=== PATIENT | male | born 1935 | race Caucasian/White ===

== ENCOUNTER 2016-07-04 12:07 | Inpatient (IN) | payer MEDICARE, MEDICAID ==
--- NOTE | 2016-07-04 12:33 | ED Physician Chart ---
Chief Complaint/HPI - Patient Information Date Seen:: 07/04/16 Time Seen:: 12:25 Chief Complaint:: increased agitation History of Present Illness:: This 81-year-old male was demonstrating increased agitation at his SNF. He apparently struck a door with his right hand. He cannot remember when the door striking incident occurred. Allergies:: Allergies Allergy/AdvReac Type Severity Reaction Status Date / Time No Known Allergies Allergy Verified 07/04/16 12:20 Historian:: Patient, EMS Review:: Nurse's Note Reviewed Review of Systems - Review of Systems General/Constitutional: No fever, No chills Skin: No skin lesions Head: No headache Eyes: No loss of vision ENT: No earache Neck: No neck pain Cardio Vascular: No chest pain, No palpitations Pulmonary: No SOB GI: Nausea, No vomiting G/U: No dysuria, No frequency Musculoskeletal: No bone or joint pain Endocrine: No polyuria, No polydipsia Psychiatric: Prior psych history Hematopoietic: No bruising Allergic/Immuno: No urticaria Neurological: Syncope Past Medical History - Past Medical History Past Medical History: HTN, DM, Dyslipidemia, Seizures, Dementia Family History: None, Other (dysphagia, chronic kidney disease, localized edema , cardiomegaly gastroesophageal esophageal reflux disease, sinusitis seizures, nontraumatic subdural hemorrhage, dementia gastrointestinal hemorrhage, Alzheimer's disease, esophagitis, duodenal ulcer, anemia of chronic renal disease, schizophrenia, major depression unspecified mood disorder atrial fibrillation, obesity, generalized arthritis, psychosis, benign prostatic hypertrophy) Social History: Non Smoker, No Alcohol Surgical History: other (skin graft) Psychiatricy History: Depression, Schizophrenia, Dementia Medication: Reviewed Family Medical History - Family Member Mother History Unknown: Yes Ethnicity: Unknown Living Status: Hx Family Cancer: No Hx Family Coronary Artery Disease: No Hx Family Congestive Heart Failure: No Hx Family Hypertension: No Hx Family Stroke: No Hx Family Diabetes: No Hx Family Seizures: No Hx Family Dementia: No Hx Family AIDS: No Hx Family HIV: No Hx Family COPD: No Hx Family Hepatitis: No Hx Family Psychiatric Problems: No Hx Family Tuberculosis: No Physical Exam - Physical Examination General/Constitutional: Well-developed, well-nourished, Alert Other Gen/Cons comments:: alert and oriented to the correct year only. Knows is the beginning of the month but does not know what month or what date. Head: Atraumatic Eyes: Lids, conjuctiva normal Other Skin comments:: swelling and slight bruising right hand ENMT: External ears, nose nl Other ENMT comments:: Edentulous Neck: No nuchal rigidity Respiratory: Nl effort/Exclusion, Clear to Auscultation Cardio Vascular: RRR GI: No tenderness/rebounding/guarding, No organomegaly, No hernia : No CVA tenderness Other Extremities comments:: See above under skin otherwise normal Neuro/Psych: No focal deficits Misc: Normal back Labs/Radiology/EKG Results - Lab Results Comments:: Laboratory Results - last 24 hr 07/04/16 07/04/16 07/04/16 12:50 12:50 12:50 WBC 9.4 D RBC 4.15 Hgb 11.4 L Hct 34.0 L MCV 82.0 MCH 27.5 MCHC Differential 33.6 RDW 17.2 Plt Count 231 MPV 8.7 Neutrophils % 69.9 Lymphocytes % 17.2 L Monocytes % 10.4 H Eosinophils % 1.9 Basophils % 0.6 Sodium 137 Potassium 3.6 Chloride 103 Carbon Dioxide 29.8 Anion Gap 7.8 BUN 28 H Creatinine 1.2 Est GFR ( Amer) TNP Est GFR (Non-Af Amer) TNP BUN/Creatinine Ratio 23.3 Glucose 104 Calcium 9.1 Total Bilirubin 0.5 AST 16 ALT 11 Alkaline Phosphatase 104 Total Protein 6.7 Albumin 3.4 L Globulin 3.3 Albumin/Globulin Ratio 1.0 TSH 2.24 - EKG Interpretations Rhythm: atrial fibrillation [place]: LAD Rate: 58 Comments:: has history of atrial fibrillation ED Septic Shock - . Is Septic Shock (SBP<90, OR Lactate>4 mmol\L) present?: No Reassessment (Disposition) - Reassessment Reassessment Condition:: Unchanged - Diagnosis Diagnosis:: dementia with agitation - Patient Disposition Admitted to:: [facility] Admitting Medical Physician:: Clarence Sinclair Admitting Psych Physician:: Vida Peterson Condition at Disposition:: Stable, Unchanged
[2016-07-04 13:04] LABS: % BASOPHILS 0.6 % (0.0-2.0); % EOSINOPHILS 1.9 % (0.0-5.0); % LYMPHOCYTES 17.2 % (20.0-50.0); % MONOCYTES 10.4 % (2.0-10.0); % NEUTROPHILS 69.9 % (40.0-80.0); HEMOGLOBIN 11.4 gm/dL (12.6-17.4); MEAN CORPUSCULAR HEMOGLOBIN 27.5 pg (27.0-31.0); MEAN CORPUSCULAR HGB CONC 33.6 pg (28.0-36.0); MEAN PLATELET VOLUME 8.7 fl; NEUTROPHILE ABSOLUTE 6.5 Th/cmm (1.8-8.0); PLATELET COUNT 231 Th/cmm (150-400); RED BLOOD COUNT 4.15 Mil/cmm (3.80-5.80); RED CELL DISTRIBUTION WIDTH 17.2 % (11.5-20.0)
[2016-07-04 13:08] LABS: WHITE BLOOD COUNT 9.4 Th/cmm (4.8-10.8)
[2016-07-04 13:20] LABS: ALKALINE PHOSPHATASE 104 U/L (34-104); ANION GAP 7.8 (7.0-16.0); BILIRUBIN,TOTAL 0.5 mg/dL (0.3-1.0); BUN - UREA NITROGEN 28 mg/dL (7-25); BUN/CREATININE RATIO 23.3; CALCIUM SERUM 9.1 mg/dL (8.6-10.3); CARBON DIOXIDE 29.8 mEq/L (21.0-31.0); CHLORIDE 103 mEq/L (98-107); CREATININE - SERUM 1.2 mg/dL (0.7-1.3); GLUCOSE 104 mg/dL (70-105); POTASSIUM SERUM 3.6 mEq/L (3.5-5.1); SGOT 16 U/L (13-39); SGPT/ALT 11 U/L (7-52); SODIUM SERUM 137 mEq/L (136-145)
[2016-07-04 20:13] VITALS: BP 149/91
[2016-07-04] MEDS ORDERED: Magnesium Hydroxide (MOM) 30 mL UDC PO PRN (21:05)
[2016-07-04] MEDS ORDERED: Maalox 30 mL Cup PO PRN (21:05)
[2016-07-05] MEDS: Multivitamin Tab PO SCH (08:22)
[2016-07-05] MEDS ORDERED: Multivitamin w/ Minerals Tab PO SCH (09:00)
--- NOTE | 2016-07-05 09:57 | History & Physical ---
PATIENT IDENTIFICATION: A 81-year-old male. CHIEF COMPLAINT: "How much money you have?" HISTORY OF PRESENT ILLNESS: A 81-year-old resident of [facility] has been followed by myself and Dr. Peterson, brought in to the Emergency Room on 07/04/2016 by paramedics for evaluation of increasing agitation. The patient was evaluated and subsequently admitted to the hospital for further treatment. The patient has a significant amount of dementia and does not provide any meaningful history. History has been obtained from Emergency Room M.D. as well as talking to staff at [facility]. PAST MEDICAL HISTORY: Remarkable for: 1. Hypertension. 2. Chronic kidney disease. 3. Asthma. 4. DJD. 5. Dementia. 6. CHF. 7. History of iron-deficiency anemia. 8. History of psychotic disorder. MEDICATIONS AT TIME OF TRANSFER: The patient is taking multiple medications, which include Tylenol, ascorbic acid, Colace, Lasix, hydralazine, Xopenex inhalation therapy, Keppra, lisinopril, milk of magnesia, melatonin, Namenda, multivitamin, amlodipine, Cogentin, Seroquel, Effexor XR, Risperdal. ALLERGIES: The patient is not allergic to medications. SOCIAL HISTORY: The patient lives in a halfway. There is no history of documented smoking cigarette, drinking alcohol or using street drug. FAMILY MEDICAL HISTORY: Unavailable. REVIEW OF SYSTEMS: Unable to obtain meaningful history from the patient. PHYSICAL EXAMINATION: GENERAL: The patient is alert, awake, lying in the bed without any acute distress. VITAL SIGNS: Temperature 98.6, pulse is 74, respiratory rate is 18, blood pressure is 130/70. SKIN: Warm to touch. HEENT: Normocephalic, atraumatic. Extraocular muscles are intact. Tongue was pink and coated. NECK: Supple, no JVD, no lymphadenopathy, no thyromegaly. HEART: Both heart sounds are regular with few ectopy. No S3, no S4. Grade 2/6 systolic murmur noted. CHEST AND LUNGS: Equal in expansion, no wheezing, no crackles. ABDOMEN: Soft. No guarding, no rigidity. Liver, spleen not palpable. No palpable mass. EXTREMITIES: No edema, no cyanosis, no clubbing. Peripheral pulses +2. No calf tenderness noted. NEUROLOGIC: This patient is alert, awake, follows commands. Decreased power throughout the upper and lower extremities noted. Moving upper and lower extremities without any difficulty. AVAILABLE DIAGNOSTIC DATA: Performed in the Emergency Room, white count of 9.4, hemoglobin 11.4, platelet count of 231. BUN and creatinine are 28 and 1.2, potassium 3.6, albumin 3.4. TSH 2.24. RPR was negative. Chest x-ray: No infiltrate, no congestion. EKG is unavailable for my review. CLINICAL IMPRESSIONS: 1. Acute exacerbation of psychotic disorder. 2. Alzheimer's dementia. 3. Hypertension. 4. Asthma. 5. Degenerative joint disease. 6. Dysphagia. 7. Fall risk. 8. Chronic kidney disease. 9. History of asthma. 10. Cardiac arrhythmia. 11. Decline in self-care and mobility. PLAN: 1. We will admit. Psychiatric evaluation and management deferred to psychiatrist. 2. Appropriate home medicine reconciliation. 3. Fall precautions. 4. General nursing care. 5. The patient is medically stable to participate in the activity provided by the Geropsych Unit at the [facility]. 6. We will follow this patient during his stay. I sincerely thank you, Dr. Petesron, for giving me the opportunity to participate in mutual patient of ours. JOB# [id number]
--- NOTE | 2016-07-05 13:19 | Psychosocial Evaluation ---
IDENTIFYING INFORMATION: The patient is a 81-year-old male. CHIEF COMPLAINT: The patient punched a wall. HISTORY OF PRESENT ILLNESS: The patient referred from [place] because he punched a wall out of nowhere, breaking ____ doors at the board and care, very agitated. When I talked to the patient, he said he would like to do what he pleases. He reported that he was not hearing voices or ____ he did not hear any voices telling him to do that, but he just felt like it. He was not very cooperative. He was answering questions in a bizarre manner. He was unable to participate in a meaningful conversation. When I asked him about the date, if he know how ____ age, he said it does not matter to him. He was very uncooperative. PAST PSYCHIATRIC HISTORY: The patient is a well known case to me as I have seen in the past. I still see him at [facility]. He had many prior hospitalizations here for similar reasons with long history of schizoaffective disorder. The patient was continued on medication, which is Seroquel ____ mg twice a day and Effexor 75 mg daily and Risperdal 0.5 mg twice a day that will be discontinued. PAST PSYCHIATRIC HISTORY: The patient has multiple prior admissions to this facility for similar reasons with a history of aggressive behavior, flooding toilets, acting out. MEDICAL HISTORY: Seizure disorder and he is on Keppra for that. He has hypertension. ALLERGIES: He has no known drug allergies. FAMILY AND SOCIAL HISTORY: The patient is single, never . He has been staying at the senior living for the past ____ years with multiple prior hospitalizations. He has no family, he is single, never , no children or at least thus information I have from him so far. MENTAL STATUS EXAMINATION: The patient is appropriately dressed, not well groomed. He was in bed. He was very inappropriate, answering questions in a very tangential manner. Unable to tell me his age, where he is, why he is here. He said he punched a wall and that is what he would like to do, but he said he does not have current urge to harm himself or anybody. He denies that it was in response to voices. However, he was very bizarre. His long and short term memory is poor. His insight and judgment are questionable. IMPRESSION: AXIS I: Schizoaffective disorder and dementia. MEDICAL DIAGNOSIS: Deferred to the medical doctor. His assets, he is accepting treatment. Negative poor coping skills. INITIAL TREATMENT PLAN: I took him off Risperdal. Continue with the Seroquel. We will do group therapy, milieu therapy, individual therapy. ESTIMATED LENGTH OF STAY: 3-7 days. DISCHARGE CRITERIA: Decrease in psychosis, agitation, no longer aggressive. After discharge, outpatient treatment. JOB# [id number]
[2016-07-05] MEDS ORDERED: Non-Formulary Item 1 EA (Melatonin [Melatonin] 3 MG) PO SCH (21:00)
[2016-07-06] MEDS: Multivitamin Tab PO SCH (08:20)
--- NOTE | 2016-07-06 09:47 | Progress Notes ---
SUBJECTIVE: The patient is currently in the hospital, referred from [place], punched a wall, breaking doors, destruction of property, agitated, combative, hearing voices, disorganized, confused. On [id number], the patient is refusing interview, refusing to answer some questions. Initially answering some questions about the year, he knew this is 2016. When I asked him about the month, he states "I don't care." The patient then starts talking about changing his mind about different topics, which are ____ unconnected and unhinged to any context. Dr. Peterson has been making medication adjustments. The patient remains dangerous, disorganized, nonsensical, confused, isolative, withdrawn. ASSESSMENT: The patient remains dangerous, not safe for discharge, isolative, withdrawn, nonsensical, not answering questions appropriately. History of schizoaffective disorder and dementia. PLAN: We will continue to monitor and titrate medications. [facility]# [id number]
[2016-07-07] MEDS: Multivitamin Tab PO SCH (09:40)
--- NOTE | 2016-07-07 18:39 | Progress Notes ---
SUBJECTIVE: The patient seen, chart reviewed, discussed with staff. The patient had punched a wall over at [place], breaking doors, destruction of property. On [id number], the patient is refusing interview, not answering any questions this morning, still noted to be disorganized, tangential, dangerous, nonsensical, isolative, withdrawn. Concerns for safety persists. Medications were reviewed. No overt side effects. ASSESSMENT: The patient remains dangerous, isolative, not safe for discharge, refusing interview. PLAN: Continue to monitor. We will continue to titrate medications as tolerated. [facility]# [id number]
[2016-07-08] MEDS: Multivitamin Tab PO SCH (09:36)
--- NOTE | 2016-07-08 23:45 | Progress Notes ---
Case discussed with staff of the patient, reviewed records. The patient continues to be responding to internal stimuli. Continues to be delusional. Continues to be unable to make safe plan for his self-care, not making sense in his sentences. He has been easily agitated. He is compliant with the medication with no side effects, no sedation, no nausea, no extrapyramidal symptoms. Lab work showed mild decrease in his hemoglobin 11.4 with low hematocrit at 34 with low lymphocytes 17.2 and high monocyte 10.4. Chemistry panel showed increased BUN at 28. TSH was in normal range. We will continue the patient in group therapy, milieu therapy, adjust the medication as needed. JOB# [id number]
[2016-07-09] MEDS: Multivitamin Tab PO SCH (09:10)
[2016-07-09 12:28] LABS: % BASOPHILS 0.7 % (0.0-2.0); % EOSINOPHILS 2.3 % (0.0-5.0); % MONOCYTES 7.6 % (2.0-10.0); % NEUTROPHILS 74.4 % (40.0-80.0); HEMATOCRIT 33.8 % (39.0-49.0); HEMOGLOBIN 11.1 gm/dL (12.6-17.4); MEAN CORPUSCULAR HEMOGLOBIN 26.9 pg (27.0-31.0); MEAN CORPUSCULAR HGB CONC 32.8 pg (28.0-36.0); MEAN PLATELET VOLUME 8.4 fl; NEUTROPHILE ABSOLUTE 6.2 Th/cmm (1.8-8.0); PLATELET COUNT 286 Th/cmm (150-400); RED BLOOD COUNT 4.13 Mil/cmm (3.80-5.80); RED CELL DISTRIBUTION WIDTH 17.4 % (11.5-20.0); WHITE BLOOD COUNT 8.4 Th/cmm (4.8-10.8)
--- NOTE | 2016-07-09 12:35 | Diagnostic Imaging Report ---
Left shoulder 2 views Indication: Swelling Comparison: none Findings: There is a comminuted impacted fracture with displacement involving the left humeral head and neck with probable extension to the articular surface. No dislocation. Mild AC joint degenerative changes are noted. Surrounding soft tissue swelling is noted. Impression: Comminuted, impacted, undisplaced fracture of the left humeral head and neck with probable extension to the articular surface.
--- NOTE | 2016-07-09 12:35 | Diagnostic Imaging Report ---
Left hand 2 views Indication: Swelling and discoloration Comparison: none Findings: The exam is limited as oblique views were not obtained. Epke-te-[id number] degenerative changes are noted. Age-indeterminate possibly old fracture of the head of second metacarpal is noted. There is generalized soft tissue swelling. Impression: Age-indeterminate, possibly chronic fracture of the head of the second metacarpal. Correlate clinically Generalized soft tissue swelling. Mild/moderate Degenerative changes. In the setting of trauma, if clinical symptoms persist and there is continued concern for an occult fracture, follow up exams in 5-7 days is suggested.
--- NOTE | 2016-07-09 14:01 | Diagnostic Imaging Report ---
Left elbow 2 views Indication: Trauma, discoloration Comparison: Left shoulder x-ray the same day Findings: There is generalized soft tissue swelling and subcutaneous edema. Mild degenerative changes of the elbow are noted. There is suggestion of a small elbow effusion. Impression: Small elbow effusion noted. Occult fracture is less likely but cannot be completely excluded Diffuse soft tissue swelling and subcutaneous edema. Mild degenerative changes. In the setting of trauma, if clinical symptoms persist and there is continued concern for an occult fracture, follow up exams in 5-7 days is suggested.
[2016-07-09] MEDS ORDERED: APAP/Codeine 300 mg/30 mg Tab PO PRN (21:07)
--- NOTE | 2016-07-10 11:10 | Diagnostic Imaging Report ---
Head CT without intravenous contrast Indication: Fall Comparison: Head CT 10/25/2014 Technique: Axial images were obtained from the vertex to the skull base without IV contrast. Coronal reconstructions were made. Total DLP: 653, CTDI36 FINDINGS: Exam is limited due to motion. Images of the brain obtained without contrast demonstrate no evidence of an acute hemorrhage. Atrophy is noted. Diffuse white matter disease is noted. The ventricles and basal cisterns are patent. No mass effect or midline shift. No evidence of a skull fracture or focal soft tissue swelling. The visualized paranasal sinuses are clear. Atherosclerosis is noted. IMPRESSION: No evidence of an acute intracranial hemorrhage. Atrophy. Diffuse supratentorial white matter disease which is nonspecific and may be due to chronic microvessel ischemia. Atherosclerosis.
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
== END 2016-07-09 21:50 | disposition short-term general hospital (02) | DRG 885 ==
LOC: ER 12:07 → GERO 15:11
PROVIDERS: ADMIT Psychiatry & Neurology Psychiatry; ATTEND Psychiatry & Neurology Psychiatry
DX: F25.9 Schizoaffective disorder, unspecified (principal); E11.22 Type 2 diabetes mellitus with diabetic chronic kidney disease; I50.9 Heart failure, unspecified; I13.0 Hypertensive heart and chronic kidney disease with heart failure and stage 1 through stage 4 chronic kidney disease, or unspecified chronic kidney disease; E78.5 Hyperlipidemia, unspecified; R56.9 Unspecified convulsions; F32.9 Major depressive disorder, single episode, unspecified; N18.9 Chronic kidney disease, unspecified; J45.909 Unspecified asthma, uncomplicated; M19.90 Unspecified osteoarthritis, unspecified site; F29 Unspecified psychosis not due to a substance or known physiological condition; G30.9 Alzheimer's disease, unspecified; F02.80 Dementia in other diseases classified elsewhere, unspecified severity, without behavioral disturbance, psychotic disturbance, mood disturbance, and anxiety; R13.10 Dysphagia, unspecified; Z79.899 Other long term (current) drug therapy
CPT/HCPCS: 36415-UA; 70450-TC; 73030-TC-LT; 73070-TC-LT; 73120-TC-LT; 80053-TC; 82948-90; 84443-TC; 85025-TC; 86592-TC; 90899; 93005; G0410; Z7610

== ENCOUNTER 2016-07-09 21:50 | Inpatient (IN) | payer MEDICARE, MEDICAID ==
[2016-07-10 00:15] VITALS: BP 133/78
--- NOTE | 2016-07-10 02:22 | Progress Notes ---
Case discussed with staff of the patient, reviewed records. The patient was found to have a hematoma or redness on the right side of his arm, which nobody can explain why. The patient reports he cannot move it. Dr. Sinclair has been called to consult to make sure he come and evaluate the situation as soon as possible, I advised the staff, called Dr. Longoria, the medical coding instructor. If they do not hear from him as we need to take this seriously and deal with it on an emergency basis. I will not be adjusting any of his medication. He is still unpredictable and impulsive, so I will be waiting to find out why this is happening unless the patient ____ and nobody knew about it or was hit by something and at this point, no side effects with the medication, no sedation, no nausea and no extrapyramidal symptoms. We will continue outpatient group therapy and milieu therapy and adjust medications. JOB# [id number]
[2016-07-10] MEDS ORDERED: LEVALBUTEROL HCL 1.25 MG IH SCH (09:45)
[2016-07-10 10:51] LABS: INR 1.11 (0.5-1.4); PROTHROMBIN TIME (TEST) 11.6 SECONDS (9.5-11.5)
[2016-07-10 10:53] LABS: ANION GAP 8.3 (7.0-16.0); BUN - UREA NITROGEN 37 mg/dL (7-25); BUN/CREATININE RATIO 33.6; CARBON DIOXIDE 28.2 mEq/L (21.0-31.0); CHLORIDE 105 mEq/L (98-107); CREATININE - SERUM 1.1 mg/dL (0.7-1.3); GLUCOSE 103 mg/dL (70-105); POTASSIUM SERUM 3.5 mEq/L (3.5-5.1); SODIUM SERUM 138 mEq/L (136-145)
[2016-07-10 11:09] LABS: % BASOPHILS 0.6 % (0.0-2.0); % EOSINOPHILS 3.9 % (0.0-5.0); % LYMPHOCYTES 16.7 % (20.0-50.0); % MONOCYTES 11.2 % (2.0-10.0); % NEUTROPHILS 67.6 % (40.0-80.0); HEMOGLOBIN 9.8 gm/dL (12.6-17.4); MEAN CORPUSCULAR HEMOGLOBIN 27.1 pg (27.0-31.0); MEAN CORPUSCULAR HGB CONC 33.1 pg (28.0-36.0); MEAN PLATELET VOLUME 7.5 fl; NEUTROPHILE ABSOLUTE 5.7 Th/cmm (1.8-8.0); PLATELET COUNT 254 Th/cmm (150-400); RED BLOOD COUNT 3.61 Mil/cmm (3.80-5.80); RED CELL DISTRIBUTION WIDTH 17.4 % (11.5-20.0); WHITE BLOOD COUNT 8.5 Th/cmm (4.8-10.8)
[2016-07-10 11:15] LABS: HEMATOCRIT 29.6 % (39.0-49.0)
--- NOTE | 2016-07-10 14:07 | History & Physical ---
PATIENT IDENTIFICATION: A 81-year-old male. CHIEF COMPLAINT: "I am fine doctor." HISTORY OF PRESENT ILLNESS: A 81-year-old resident of [facility] and management when the patient was noted to have increasing agitation. During the stay in the hospital, it was noted that the patient has bruises on his left upper extremity. I did call [facility] and talked to the staff. There was no documented history of any fall though the patient had bruises on his upper extremity in the left. X-rays were done, which did reveal the patient had evidence of comminuted impacted undisplaced fracture of the left humerus head and neck with probable extension to the articular surface. X-rays of this hand and elbows were unremarkable except questionable fracture of the left elbow. Though the patient has no pain, though the patient has a sling on right now and due to his medical history, I cannot get meaningful history from the patient. Due to the fact it is a fracture, I have advised the patient is to be transferred to medical floor for further management. PAST MEDICAL HISTORY: Remarkable for: 1. Alzheimer's type dementia. 2. DJD. 3. Asthma. 4. Chronic kidney disease. 5. Congestive heart failure. 6. History of iron deficiency anemia. 7. Cardiac arrhythmia. MEDICATIONS AT HOME: List has been reviewed and reconciled appropriately. ALLERGIES: No allergic to any medications. SOCIAL HISTORY: He lives in [facility]. No documented smoking cigarette, alcohol or drug use. FAMILY MEDICAL HISTORY: Unavailable. REVIEW OF SYSTEMS: Unable to obtain meaningful history from the patient. PHYSICAL EXAMINATION: GENERAL: The patient is alert, awake, lying in the bed without any acute distress. VITAL SIGNS: Temperature 98, pulse is 60, respiratory rate is 162/85. SKIN: Warm to touch. HEENT: Normocephalic, atraumatic. Extraocular muscles are intact. Tongue was pink and coated. Absent upper and lower dentition noted. No facial asymmetry. NECK: Supple, no JVD, no hepatojugular reflux. No lymphadenopathy, thyromegaly or carotid bruit. HEART: Both heart sounds are regular. Grade 2/6 systolic murmur noted. CHEST: Lung equal in expansion, no wheezing, no crackles. ABDOMEN: Soft. No guarding, no rigidity. Liver, spleen not palpable. No palpable mass. EXTREMITIES: Remarkable for a left shoulder puffiness noted. Range of motions are painful. Some bruises on the upper arm noted. NEUROLOGIC: Intact on the left hand. Marked dementia. AVAILABLE DIAGNOSTIC DATA: Has been reviewed. CLINICAL IMPRESSION: 1. Fracture, left shoulder, comminuted impacted, nondisplaced, needs Orthopedic evaluation. 2. Hypertension. 3. Asthma. 4. Dementia. 5. Congestive heart failure. 6. Degenerative joint disease. 7. Psychotic disorder. 8. Cardiac arrhythmia. PLAN: 1. Admit this patient to Med/Surg. 2. Orthopedic consultation. 3. Preop lab. 4. Psych followup. 5. Appropriate home medicine reconciliation. 6. General nursing care. 7. Fall precautions. 8. One to one sitter. 9. Follow telecommunications consultant recommendations. 10. Care plan reviewed and discussed. JOB# [id number]
[2016-07-10] MEDS: APAP/Codeine 300 mg/30 mg Tab PO PRN ×2 (15:37→21:58)
--- NOTE | 2016-07-10 20:00 | Consultation ---
The patient was transferred to the medical floor on 07/09/2016. IDENTIFYING INFORMATION: The patient is a 81-year-old male. CHIEF COMPLAINT: No answer. HISTORY OF PRESENT ILLNESS: The patient transferred from [facility], was apparently found to have broken his left humerus and needed surgery. The patient was admitted because of agitation, delusion and aggressive behavior. The patient himself was a poor historian. Rambling speech, loud. PAST PSYCHIATRIC HISTORY: Multiple prior admissions to this facility for similar reasons with a history of schizoaffective disorder. MEDICAL HISTORY: Deferred to the medical doctor. ALLERGIES: The patient has no known drug allergies. MEDICATIONS: The patient has not been started back on his medication. However, he would be having surgery and hopefully his medications will be started after he is doing well. He also has seizure disorder. FAMILY AND SOCIAL HISTORY: The patient is single, never , no children, has no family available. He has been living in a assisted for the past few years. MENTAL STATUS EXAMINATION: The patient is appropriately dressed, not well groomed. He was somewhat tired, sedated, unable to participate in meaningful conversation. He has been in pain. His long and short term memory is poor, unable to participate in a meaningful conversation. He is in pain. He has been acting irrational at times on the unit. His insight and judgment is impaired. IMPRESSION: AXIS I: Schizoaffective disorder and dementia. MEDICAL DIAGNOSIS: Deferred to the medical doctor. I would recommend to restart his medications when he is medically cleared. Thank you very much for allowing me to participate in the care of this most interesting gentleman. JOB# [id number]
[2016-07-10] MEDS ORDERED: Non-Formulary Item 1 EA (Melatonin [Melatonin] 3 MG) PO SCH (21:00)
--- NOTE | 2016-07-10 22:17 | Admit Criteria Form ---
Admit Criteria Forms - Admit Criteria Diagnosis: MUSCULOSKELETAL DISEASE [facility] Clinical Indications for Admission to Inpatient Care (Place 'X' for any and all applicable criteria): Hospital admission is needed for appropriate care of the patient because of ANY ONE of the following: [X]I. Fracture, dislocation, or other musculoskeletal injury requiring inpatient care(medical) as indicated by ANY ONE of the following(4)(5)(6)(7) [ ]a) Vertebral fracture requiring observation for instability or neurologic compromise (8) [ ]b) Compartment syndrome (proven or cannot be ruled out during observation level of care) (9) [ ]c) Limb-threatening injury [ ]d) Major injury requiring inpatient stabilization such as traction initiation or external fixation before internal fixation or closure of complex or open fracture [X]e) Major injury requiring inpatient treatment after emergency or observation level care (as appropriate) [ ]f) Severe pain requiring acute inpatient management [ ]II. Newly diagnosed or suspected bone, joint, or orthopedic device infection (e.g., osteomyelitis, septic arthritis) needing ANY ONE of the following(1)(2)(3) [ ]a) IV antibiotics that cannot be initiated in other than inpatient setting (e.g., patient too unstable or home infusion not available) [ ]b) Device removal or replacement [ ]c) Bone or soft tissue debridement [ ]d) Joint drainage (drain placement or repetitive aspirations) [ ]III. Severe rheumatologic disease (e.g., systemic lupus erythematosus, rheumatoid arthritis) with complications or comorbidities (Also use Optimal Recovery Care Criteria or General Recovery Criteria as appropriate on the basis of predominant condition), including ANY ONE of the following(10 )(11)(12)(13) [ ]a) Severe infection (e.g., MOWER MECHANIC infection, sepsis) (14) [ ]b) Respiratory complications, including ANY ONE of the following: [ ]i) Pleural effusion with respiratory compromise [ ]ii) Pulmonary hypertension with congestive failure [ ]iii) Respiratory failure [ ]iv) Pulmonary hemorrhage (15) [ ]c) Hematologic disease, including ANY ONE of the following: [ ]i) Coagulopathy with bleeding [ ]ii) Thrombosis with hypercoagulable state [ ]iii) Thrombotic thrombocytopenic purpura [ ]d) Cerebritis with seizures, psychosis, or other severe abnormalities [ ]e) Vertebral destruction with monitoring needed for cervical myelopathy& possible respiratory compromise [ ]f) Exacerbation that requires inpatient treatment (e.g., intravenous immunosuppression) (16) [ ]g) Acute renal failure [ ]IV. Severe vasculitis with complications or comorbidities (Also use Optimal Recovery Care Criteria or General Recovery Criteria as appropriate on the basis of predominant condition), including ANY ONE of the following(11)(12)(17)(18)(19)(20) [ ]a) MOWER MECHANIC vasculitis with seizures, psychosis, or other severe abnormalities (22) [ ]b) Renal failure (16) [ ]c) Pulmonary hemorrhage (15) [ ]d) Cerebral infarction [ ]e) Gastrointestinal ischemia [ ]f) Gangrene or threatened amputation [ ]g) Exacerbation that requires inpatient treatment (e.g., intravenous immunosuppression) (19)(21) [ ]V. Severe myopathy as indicated by ANY ONE of the following (28)(29) [ ]a) New onset of airway compromise or inability to swallow [ ]b) Respiratory deterioration with observation needed for impending respiratory failure [ ]c) Exacerbation that requires inpatient treatment (e.g., intravenous immunosuppression) [ ]. Severe gout (crystal arthropathy) as indicated by ANY ONE of the following (23)(24) [ ]a) Severe pain requiring acute inpatient management [ ]b) Exacerbation that requires inpatient treatment (e.g., intravenous treatment) [ ]VII.Rhabdomyolysis and ANY ONE of the following (25)(26)(27) [ ]a) Acute renal failure [ ]b) Need for intravenous hydration after emergency or observation level care (as appropriate) [ ]c) Inability to maintain oral hydration [ ]d) Change in mental status [ ]e) Electrolyte abnormality that remains after emergency or observation level care (as appropriate) [ ]VIII Post amputation complication, as indicated by ANY ONE of the following [ ]a) Infection [ ]b) Dehiscence [ ]c) Myodesis failure [ ]IX. Severe pain requiring acute inpatient management as indicated by ALL of the following (30)(31)(32) [ ]a) Continuous or frequent (e.g., every 2 to 4 hrs) parenteral analgesics required [A] [ ]b) Rapid improvement expected from treatment or acute intervention ( e.g., surgery, anesthesia procedure[B] [ ]X. Musculoskeletal Disease and ALL of the following: [ ]a) Symptom or finding for which emergency and observation care have failed or are not considered appropriate (Use General Criteria: Observation Care as appropriate) [ ]b) Presence of ANY ONE of the following [ ]i) A General Admission Criteria [ ]ii) A Pediatric General Admission Criteria The original [facility] content created by [facility] has been revised. The portions of the content which have been revised are identified through the use of italic text or in bold, and [facility] has neither reviewed nor approved the modified material. All other unmodified content is copyright [facility]. Please see references footnoted in the original [facility] edition 2016 Admit Criteria Met?: Yes
--- NOTE | 2016-07-11 04:54 | Consultation ---
HISTORY OF PRESENT ILLNESS: The patient is a 81-year-old gentleman admitted to [facility] on 07/04/2016 for psychiatric care. He was found to have an injury of his left shoulder and was transferred to the medical surgical farley and I was called in for Orthopedic consultation regarding this injury. I inquired the patient when he injured his arm/shoulder and he stated that "a long time ago." pressed him further to find out approximately when it happened and I could not get any more information. He is not able to give meaningful answers to other health history questions. A review of the chart and transfer records reveals diagnoses of hypertension, asthma, dementia, chronic atrial fibrillation, COPD, cardiomegaly, diabetes mellitus, GERD and seizure disorder. PAST SURGICAL HISTORY: Unknown. FAMILY HISTORY: Unknown. REVIEW OF SYSTEMS: Unknown. PHYSICAL EXAMINATION: MUSCULOSKELETAL: There is pain, swelling and tenderness left shoulder with fading bruises. LABORATORY DATA: Review of the lab work shows a hemoglobin of 11.1. X-rays ____ images in the PACS, left shoulder and humerus, there is a fracture of the surgical neck which is displaced. ORTHOPEDIC DIAGNOSIS: Fracture, surgical neck, left humerus displaced, closed. RECOMMENDATIONS: The patient can be treated with a sling and limited motion of the left shoulder, i.e., he should not lean on the elbow or trying to raise the arm without assistance. He can lean over and do Codman pendulum exercises. If he wishes, he could have a surgery when medically optimized and cleared and following obtaining proper consent for surgery -- ORIF fracture neck of left humerus with plate and screw fixation or possible rods. JOB# [id number]
[2016-07-11] MEDS: Magnesium Hydroxide (MOM) 30 mL UDC PO SCH (09:30)
[2016-07-11] MEDS: Multivitamin w/ Minerals Tab PO SCH (09:32)
[2016-07-11] MEDS ORDERED: LEVALBUTEROL HCL 1.25 MG IH PRN (16:19)
--- NOTE | 2016-07-12 02:47 | Progress Notes ---
Case was discussed with staff of the patient, reviewed records. The patient was put back on his medications, Seroquel 100 mg twice a day, 25 mg twice a day and venlafaxine 75 mg daily and Risperdal 0.5 mg twice a day and he so far has been compliant with the medication with no side effects. He continues to be rambling. He continues to be unpredictable, impulsive, getting easily agitated. I would recommend the patient go back to [facility] when medically cleared for further adjustment with his medication. Meanwhile, I will be taking him off the Risperdal. I just wanted him to be tried on just one antipsychotic and so far no side effects, no sedation, no extrapyramidal symptoms. Thank you very much for allowing me to participate in the care of this most interesting gentleman. JOB# [id number]
[2016-07-12] MEDS: Magnesium Hydroxide (MOM) 30 mL UDC PO SCH (09:44)
[2016-07-12] MEDS: Multivitamin w/ Minerals Tab PO SCH (09:45)
[2016-07-12 09:57] LABS: % BASOPHILS 0.5 % (0.0-2.0); % EOSINOPHILS 4.8 % (0.0-5.0); % LYMPHOCYTES 23.1 % (20.0-50.0); % MONOCYTES 9.6 % (2.0-10.0); HEMATOCRIT 31.1 % (39.0-49.0); HEMOGLOBIN 10.3 gm/dL (12.6-17.4); MEAN CELL VOLUME 82.7 fl (80-99); MEAN CORPUSCULAR HEMOGLOBIN 27.4 pg (27.0-31.0); MEAN CORPUSCULAR HGB CONC 33.2 pg (28.0-36.0); MEAN PLATELET VOLUME 8.5 fl; NEUTROPHILE ABSOLUTE 4.1 Th/cmm (1.8-8.0); PLATELET COUNT 243 Th/cmm (150-400); RED BLOOD COUNT 3.76 Mil/cmm (3.80-5.80); RED CELL DISTRIBUTION WIDTH 17.7 % (11.5-20.0)
[2016-07-12 10:08] LABS: INR 1.09 (0.5-1.4); PROTHROMBIN TIME (TEST) 11.3 SECONDS (9.5-11.5)
[2016-07-12 10:12] LABS: ALB/GLOB RATIO 0.9 (1.0-1.8); ALKALINE PHOSPHATASE 94 U/L (34-104); ANION GAP 7.8 (7.0-16.0); BILIRUBIN,TOTAL 0.7 mg/dL (0.3-1.0); BUN - UREA NITROGEN 38 mg/dL (7-25); BUN/CREATININE RATIO 31.7; CARBON DIOXIDE 27.2 mEq/L (21.0-31.0); CHLORIDE 109 mEq/L (98-107); CREATININE - SERUM 1.2 mg/dL (0.7-1.3); GLUCOSE 92 mg/dL (70-105); SGOT 16 U/L (13-39); SGPT/ALT 12 U/L (7-52); SODIUM SERUM 140 mEq/L (136-145)
[2016-07-12 10:24] LABS: WHITE BLOOD COUNT 6.5 Th/cmm (4.8-10.8)
--- NOTE | 2016-07-12 11:12 | Diagnostic Imaging Report ---
Portable chest x-ray HISTORY: Shortness of breath. The heart is enlarged. Atherosclerotic calcification seen in the aorta. No acute focal pulmonary processes. No other hilar or mediastinal abnormalities. IMPRESSION: 1. No acute focal pulmonary processes 2. Cardiomegaly with atherosclerotic vascular changes
--- NOTE | 2016-07-13 01:25 | Progress Notes ---
Case was discussed with staff of the patient. The patient continues to be the same, delusional, very poor insight, was able to carry on a conversation better, sleeping better, eating better, tolerated the taking him off Risperdal with no side effects. He is currently compliant with the Seroquel 100 mg twice a day and 25 mg twice a day with no side effects, no sedation, no nausea and no extrapyramidal symptoms. We will continue to work with the patient in group therapy, milieu therapy and adjust medications ____. JOB# [id number]
--- NOTE | 2016-07-13 09:18 | Diagnostic Imaging Report ---
Portable chest x-ray HISTORY: Pain The heart is enlarged. Atherosclerotic calcification seen in the aorta. No acute focal pulmonary processes. IMPRESSION: 1. No acute pulmonary processes 2. Cardiomegaly with atherosclerotic vascular changes
[2016-07-13] MEDS: Magnesium Hydroxide (MOM) 30 mL UDC PO SCH (09:25)
[2016-07-13] MEDS: Multivitamin w/ Minerals Tab PO SCH (09:26)
--- NOTE | 2016-07-13 19:08 | Progress Notes ---
SUBJECTIVE: Chart reviewed and the patient interviewed. Also discussed the patient's condition with the staff and reviewed records and labs. The patient still has episodes of irritability and agitation, but seems to be calmer, slightly easier to redirect him. The patient also has been compliant with taking medications with no side effects of medications. PLAN: Continue same medications and monitor his behavior and follow up. [facility]# [id number]
[2016-07-14] MEDS: Multivitamin w/ Minerals Tab PO SCH ×3 (08:37→13:38)
[2016-07-14] MEDS: Magnesium Hydroxide (MOM) 30 mL UDC PO SCH ×3 (08:37→13:38)
[2016-07-15 07:27] LABS: % BASOPHILS 1.2 % (0.0-2.0); % EOSINOPHILS 1.7 % (0.0-5.0); % MONOCYTES 4.8 % (2.0-10.0); % NEUTROPHILS 78.3 % (40.0-80.0); HEMOGLOBIN 11.4 gm/dL (12.6-17.4); MEAN CELL VOLUME 83.7 fl (80-99); MEAN CORPUSCULAR HEMOGLOBIN 27.4 pg (27.0-31.0); MEAN CORPUSCULAR HGB CONC 32.7 pg (28.0-36.0); MEAN PLATELET VOLUME 9.5 fl; NEUTROPHILE ABSOLUTE 9.9 Th/cmm (1.8-8.0); PLATELET COUNT 284 Th/cmm (150-400); RED BLOOD COUNT 4.15 Mil/cmm (3.80-5.80); RED CELL DISTRIBUTION WIDTH 18.6 % (11.5-20.0)
[2016-07-15 07:44] LABS: ALB/GLOB RATIO 0.9 (1.0-1.8); ALKALINE PHOSPHATASE 111 U/L (34-104); ANION GAP 9.3 (7.0-16.0); BILIRUBIN,TOTAL 0.8 mg/dL (0.3-1.0); BUN - UREA NITROGEN 41 mg/dL (7-25); BUN/CREATININE RATIO 31.5; CALCIUM SERUM 9.3 mg/dL (8.6-10.3); CARBON DIOXIDE 28.5 mEq/L (21.0-31.0); CHLORIDE 113 mEq/L (98-107); CREATININE - SERUM 1.3 mg/dL (0.7-1.3); GLUCOSE 107 mg/dL (70-105); POTASSIUM SERUM 3.8 mEq/L (3.5-5.1); SGOT 21 U/L (13-39); SGPT/ALT 15 U/L (7-52); SODIUM SERUM 147 mEq/L (136-145)
[2016-07-15 07:50] LABS: HEMATOCRIT 34.7 % (39.0-49.0); WHITE BLOOD COUNT 12.7 Th/cmm (4.8-10.8)
[2016-07-15] MEDS: Multivitamin w/ Minerals Tab PO SCH ×2 (09:05→09:45)
[2016-07-15] MEDS: Magnesium Hydroxide (MOM) 30 mL UDC PO SCH ×2 (09:05→09:46)
[2016-07-15] MEDS ORDERED: D5-0.45NS 1,000 ML IV SCH (09:30)
[2016-07-15] MEDS: D5-0.45NS 1,000 ML IV SCH (09:44)
[2016-07-16 00:09] LABS: URINE BILIRUBIN NEGATIVE (NEGATIVE); URINE BLOOD NEGATIVE (NEGATIVE); URINE COLOR YELLOW; URINE GLUCOSE (UA) NEGATIVE (NEGATIVE); URINE KETONE NEGATIVE (NEGATIVE); URINE PROTEIN NEGATIVE (NEGATIVE); URINE RBC 0-2 /hpf (0-5); URINE UROBILINOGEN 0.2 E.U./dL (0.2 - 1.0); URINE WBC 0-2 /hpf (0-5)
[2016-07-16 00:10] LABS: URINE BACTERIA OCCASIONAL /hpf (NONE SEEN); URINE EPITHELIAL CELLS OCCASIONAL /lpf (FEW)
--- NOTE | 2016-07-16 00:41 | Progress Notes ---
Case was discussed with staff of the patient, reviewed records. The patient is still awaiting to have surgery and will be done tomorrow. The patient continues to be unpredictable, impulsive; however, no acting out behavior reported. Continues to be compliant with the medication, no sedation, no nausea, no extrapyramidal symptoms. We will continue to work with the patient in group therapy, milieu therapy, and adjust medications as needed. [facility]# [id number]
[2016-07-16] MEDS: D5-0.45NS 1,000 ML IV SCH (02:19)
[2016-07-16] MEDS: APAP/Codeine 300 mg/30 mg Tab PO PRN (03:40)
[2016-07-16 05:42] LABS: % BASOPHILS 0.8 % (0.0-2.0); % EOSINOPHILS 1.1 % (0.0-5.0); % LYMPHOCYTES 14.5 % (20.0-50.0); % MONOCYTES 5.3 % (2.0-10.0); % NEUTROPHILS 78.3 % (40.0-80.0); HEMATOCRIT 32.8 % (39.0-49.0); HEMOGLOBIN 10.9 gm/dL (12.6-17.4); MEAN CELL VOLUME 83.6 fl (80-99); MEAN CORPUSCULAR HEMOGLOBIN 27.7 pg (27.0-31.0); MEAN CORPUSCULAR HGB CONC 33.1 pg (28.0-36.0); MEAN PLATELET VOLUME 8.3 fl; NEUTROPHILE ABSOLUTE 8.3 Th/cmm (1.8-8.0); PLATELET COUNT 265 Th/cmm (150-400); RED BLOOD COUNT 3.92 Mil/cmm (3.80-5.80); WHITE BLOOD COUNT 10.7 Th/cmm (4.8-10.8)
[2016-07-16 06:01] LABS: ALKALINE PHOSPHATASE 104 U/L (34-104); ANION GAP 6.1 (7.0-16.0); BILIRUBIN,TOTAL 0.9 mg/dL (0.3-1.0); BUN - UREA NITROGEN 40 mg/dL (7-25); BUN/CREATININE RATIO 26.7; CARBON DIOXIDE 29.8 mEq/L (21.0-31.0); CHLORIDE 116 mEq/L (98-107); CREATININE - SERUM 1.5 mg/dL (0.7-1.3); GLUCOSE 118 mg/dL (70-105); POTASSIUM SERUM 3.9 mEq/L (3.5-5.1); SGOT 22 U/L (13-39); SGPT/ALT 18 U/L (7-52); SODIUM SERUM 148 mEq/L (136-145)
[2016-07-16] MEDS: Multivitamin w/ Minerals Tab PO SCH (08:28)
[2016-07-16] MEDS: Magnesium Hydroxide (MOM) 30 mL UDC PO SCH (08:28)
[2016-07-16] MEDS ORDERED: Midazolam 1mg/ml 2 ml vial IV ONE ×2 (10:09→14:00)
[2016-07-16] MEDS ORDERED: Meperidine 50 mg/mL 1mL Syr ONE (10:11)
[2016-07-16] MEDS ORDERED: Meperidine 25 mg/mL 1mL Syr IVP PRN (11:04)
[2016-07-16] MEDS ORDERED: Lactated Ringer 1,000 ML IV SCH (11:15)
[2016-07-16] MEDS ORDERED: Hydrocodone/APAP 5mg/325mg Tab PO PRN (13:53)
[2016-07-16] MEDS ORDERED: D5-0.45NS 1,000 ML IV SCH (13:53)
[2016-07-16] MEDS ORDERED: Morphine Sulfate 2 mg/mL 1mL Syr IVP PRN (13:55)
[2016-07-16] MEDS ORDERED: Bupivacaine 0.5% 10 mL Vial INJ ONE (14:00)
[2016-07-16] MEDS ORDERED: fentaNYL Citrate 100 mcg/2mL Vial IV ONE (14:00)
--- NOTE | 2016-07-16 15:14 | Diagnostic Imaging Report ---
Left shoulder (intraoperative fluoroscopic images and services) HISTORY: Fracture Intraoperative fluoroscopic images and services were provided for facilitation of surgical intervention. 49 seconds fluoroscopy time was utilized.
--- NOTE | 2016-07-16 15:22 | Operative Report ---
PREOPERATIVE DIAGNOSIS: Fracture neck, left humerus, closed, displaced. POSTOPERATIVE DIAGNOSIS: Fracture neck, left humerus, closed, displaced. SURGEON: Rayshawn Solis M.D. FILENET ADMIN: Kwaku Bailon Jr., M.D. ANESTHESIOLOGIST: Neeraj Santizo M.D. ANESTHESIA: 1. General anesthesia. 2. Scalene nerve block for postoperative analgesia. PROCEDURE: Open reduction and internal plate and screw fixation of fractured neck, left humerus. DETAILS OF PROCEDURE: Following satisfactory anesthesia by Dr. Santizo, the patient was given intravenous antibiotics. The left upper extremity was sterilely prepped and draped in sterile stockinette which was over the extremity and sterile Ioban over the shoulder. The patient was placed in the beach chair position. The routine timeout was performed. A deltopectoral approach to the shoulder was made. The cephalic vein was retracted medially along with a few fibers of deltoid. The deltoid was then released above and below slightly and retracted laterally. The fracture was viewed with the C-arm and reduced with a bone hook. A Souza and Nephew proximal humeral plate was then clamped in place and adjusted. The position was viewed with the C-arm. The holes in the upper right portion were drilled, measured and filled with appropriate cortical bone screws and then locking screws placed in the upright holes. Each step was viewed with the C-arm. The reduction appeared complete and anatomic and the construct secured. The screw lengths were all ideal. No screws penetrated into the joint. The wound was irrigated and closed and 3-0 Vicryl was used to reapproximate the deltoid and the subcutaneous layer and julio used on the skin. The wound is washed with chlorhexidine and dried. Bactroban ointment, Xeroform gauze and sterile dressings were applied, 15 mL of 0.25% Marcaine with epinephrine was injected under the julio and into the deeper tissues. Blood loss was modest, under 100 mL. There was no replacement. There were no drains or tubes. IMMEDIATE POSTOPERATIVE CONDITION: Good. JOB# [id number]
--- NOTE | 2016-07-17 00:42 | Progress Notes ---
Case discussed with staff of patient reviewed records. The patient continues to have poor insight. He rambles. He is able to carry on a conversation. He is supposed to have surgery today. So far he is compliant with the medication, no side effects, no sedation, no nausea, no extrapyramidal symptoms. I will continue to work the patient in group therapy, milieu therapy. Adjust the medications as needed. JOB# [id number]
[2016-07-17 06:46] LABS: HEMATOCRIT 30.5 % (39.0-49.0); HEMOGLOBIN 10.3 gm/dL (12.6-17.4); MEAN CELL VOLUME 83.1 fl (80-99); MEAN CORPUSCULAR HGB CONC 33.7 pg (28.0-36.0); MEAN PLATELET VOLUME 8.8 fl; PLATELET COUNT 254 Th/cmm (150-400); RED BLOOD COUNT 3.67 Mil/cmm (3.80-5.80); RED CELL DISTRIBUTION WIDTH 18.2 % (11.5-20.0)
[2016-07-17 07:12] LABS: ALB/GLOB RATIO 0.9 (1.0-1.8); ALKALINE PHOSPHATASE 107 U/L (34-104); ANION GAP 8.2 (7.0-16.0); BUN - UREA NITROGEN 37 mg/dL (7-25); BUN/CREATININE RATIO 26.4; CALCIUM SERUM 9.2 mg/dL (8.6-10.3); CHLORIDE 116 mEq/L (98-107); CREATININE - SERUM 1.4 mg/dL (0.7-1.3); GLUCOSE 128 mg/dL (70-105); POTASSIUM SERUM 4.2 mEq/L (3.5-5.1); SGOT 28 U/L (13-39); SGPT/ALT 16 U/L (7-52); SODIUM SERUM 148 mEq/L (136-145)
[2016-07-17 07:49] LABS: WHITE BLOOD COUNT 14.4 Th/cmm (4.8-10.8)
[2016-07-17 08:12] LABS: BAND NEUTROPHILE 4 % (0-10); NEUTROPHILS 84 % (40-80); TOTAL CELLS COUNTED 100
[2016-07-17 08:13] LABS: PLATELET ESTIMATE ADEQUATE (NORMAL); PLATELET MORPHOLOGY NORMAL (NORMAL)
[2016-07-17] MEDS: Multivitamin w/ Minerals Tab PO SCH (09:01)
[2016-07-17] MEDS: Magnesium Hydroxide (MOM) 30 mL UDC PO SCH (09:03)
[2016-07-17] MEDS ORDERED: Dextrose 5% 1,000 ML IV SCH (10:15)
--- NOTE | 2016-07-18 01:49 | Progress Notes ---
Case discussed with staff of the patient, reviewed records. The patient had the surgery yesterday. The patient is eating well; the staff reported he ate a 100% of his diet. He continues, however, to be unpredictable, impulsive. He is on pain medication. He is sleeping better. No side effects with the medication, no sedation, no nausea, no extrapyramidal symptoms. Thank you very much for allowing me to participate in the care of this interesting gentleman. The patient may need to go back to [facility] when medically cleared. JOB# [id number]
[2016-07-18 06:45] LABS: ANION GAP 6.8 (7.0-16.0); BUN - UREA NITROGEN 36 mg/dL (7-25); BUN/CREATININE RATIO 27.7; CALCIUM SERUM 8.8 mg/dL (8.6-10.3); CARBON DIOXIDE 25.9 mEq/L (21.0-31.0); CHLORIDE 110 mEq/L (98-107); CREATININE - SERUM 1.3 mg/dL (0.7-1.3); GLUCOSE 110 mg/dL (70-105); POTASSIUM SERUM 3.7 mEq/L (3.5-5.1); SODIUM SERUM 139 mEq/L (136-145)
[2016-07-18] MEDS: Multivitamin w/ Minerals Tab PO SCH (08:47)
[2016-07-18] MEDS: Magnesium Hydroxide (MOM) 30 mL UDC PO SCH (08:48)
--- NOTE | 2016-07-18 16:33 | Internal Medicine Prog Note ---
Internal Medicine Subjective - Subjective Patient seen and examined:: with staff, chart reviewed Patient is:: awake, verbal Per staff patient is:: no adverse event, confused Internal Medicine Objective - Results Result Diagrams: 07/17/16 06:30 07/18/16 05:50 Recent Labs: Laboratory Last Values WBC 14.4 Th/cmm (4.8-10.8) H D 07/17/16 06:30 RBC 3.67 Mil/cmm (3.80-5.80) L 07/17/16 06:30 Hgb 10.3 gm/dL (12.6-17.4) L 07/17/16 06:30 Hct 30.5 % (39.0-49.0) L 07/17/16 06:30 MCV 83.1 fl (80-99) 07/17/16 06:30 MCH 28.0 pg (27.0-31.0) 07/17/16 06:30 MCHC Differential 33.7 pg (28.0-36.0) 07/17/16 06:30 RDW 18.2 % (11.5-20.0) 07/17/16 06:30 Plt Count 254 Th/cmm (150-400) 07/17/16 06:30 MPV 8.8 fl 07/17/16 06:30 Neutrophils % 78.3 % (40.0-80.0) 07/16/16 05:32 Band Neutrophils % 4 % (0-10) 07/17/16 06:30 Lymphocytes % 14.5 % (20.0-50.0) L 07/16/16 05:32 Monocytes % 5.3 % (2.0-10.0) 07/16/16 05:32 Eosinophils % 1.1 % (0.0-5.0) 07/16/16 05:32 Basophils % 0.8 % (0.0-2.0) 07/16/16 05:32 Neutrophils (Manual) 84 % (40-80) H 07/17/16 06:30 Lymphocytes 8 % (20-50) L 07/17/16 06:30 Monocytes 2 % (2-10) 07/17/16 06:30 Atypical Lymphocytes 2 % 07/17/16 06:30 Platelet Estimate ADEQUATE (NORMAL) 07/17/16 06:30 Platelet Morphology NORMAL (NORMAL) 07/17/16 06:30 RBC Morph Micro Appear NORMAL (NORMAL) 07/17/16 06:30 PT 11.3 SECONDS (9.5-11.5) 07/12/16 09:45 INR 1.09 (0.5-1.4) 07/12/16 09:45 PTT (Actin FS) 24.5 SECONDS (26.0-38.0) L 07/12/16 09:45 Sodium 139 mEq/L (136-145) 07/18/16 05:50 Potassium 3.7 mEq/L (3.5-5.1) 07/18/16 05:50 Chloride 110 mEq/L (98-107) H 07/18/16 05:50 Carbon Dioxide 25.9 mEq/L (21.0-31.0) 07/18/16 05:50 Anion Gap 6.8 (7.0-16.0) L 07/18/16 05:50 BUN 36 mg/dL (7-25) H 07/18/16 05:50 Creatinine 1.3 mg/dL (0.7-1.3) 07/18/16 05:50 Est GFR ( Amer) TNP 07/18/16 05:50 Est GFR (Non-Af Amer) TNP 07/18/16 05:50 BUN/Creatinine Ratio 27.7 07/18/16 05:50 Glucose 110 mg/dL (70-105) H 07/18/16 05:50 POC Glucose 94 MG/DL (70 - 105) 07/16/16 09:02 Calcium 8.8 mg/dL (8.6-10.3) 07/18/16 05:50 Total Bilirubin 1.0 mg/dL (0.3-1.0) 07/17/16 06:30 AST 28 U/L (13-39) 07/17/16 06:30 ALT 16 U/L (7-52) 07/17/16 06:30 Alkaline Phosphatase 107 U/L (34-104) H 07/17/16 06:30 Troponin I 0.02 ng/mL (0.01-0.05) 07/10/16 10:20 Total Protein 6.6 gm/dL (6.0-8.3) 07/17/16 06:30 Albumin 3.2 gm/dL (4.2-5.5) L 07/17/16 06:30 Globulin 3.4 gm/dL 07/17/16 06:30 Albumin/Globulin Ratio 0.9 (1.0-1.8) L 07/17/16 06:30 Urine Source MIDSTREAM 07/15/16 23:20 Urine Color YELLOW 07/15/16 23:20 Urine Clarity CLEAR (CLEAR) 07/15/16 23:20 Urine pH 6.0 07/15/16 23:20 Ur Specific [place] 1.015 (1.005-1.030) 07/15/16 23:20 Urine Protein NEGATIVE mg/dL (NEGATIVE) 07/15/16 23:20 Urine Glucose (UA) NEGATIVE mg/dL (NEGATIVE) 07/15/16 23:20 Urine Ketones NEGATIVE mg/dL (NEGATIVE) 07/15/16 23:20 Urine Blood NEGATIVE (NEGATIVE) 07/15/16 23:20 Urine Nitrate NEGATIVE (NEGATIVE) 07/15/16 23:20 Urine Bilirubin NEGATIVE (NEGATIVE) 07/15/16 23:20 Urine Urobilinogen 0.2 E.U./dL (0.2 - 1.0) 07/15/16 23:20 Ur Leukocyte Esterase NEGATIVE (NEGATIVE) 07/15/16 23:20 Urine RBC 0-2 /hpf (0-5) H 07/15/16 23:20 Urine WBC 0-2 /hpf (0-5) 07/15/16 23:20 Ur Epithelial Cells OCCASIONAL /lpf (FEW) 07/15/16 23:20 Urine Bacteria OCCASIONAL /hpf (NONE SEEN) 07/15/16 23:20 Blood Type A POSITIVE 07/16/16 05:32 Antibody Screen NEGATIVE 07/16/16 05:32 - Physical Exam Vitals and I&O: Vital Signs Temp 97.1 F 07/18/16 12:00 Pulse 87 07/18/16 12:00 Resp 18 07/18/16 12:00 BP 126/79 07/18/16 12:00 Pulse Ox 97 07/18/16 12:00 Intake & Output 07/17/16 07/18/16 07/18/16 18:59 06:59 18:59 Intake Total 1000 Balance 1000 Intake: Oral 1000 Other: # Voids 3 # Bowel Movements 1 Stool Characteristics Soft Soft Soft Formed Formed Formed Brown Brown Brown Active Medications: Current Medications Acetaminophen (Tylenol) 325 mg PO Q4HR PRN PRN Reason: Pain Stop: 09/08/16 09:35 Last Admin: 07/14/16 13:39 Dose: 325 mg Acetaminophen/Hydrocodone Bitart ([place] 5mg/325mg) 1 tab PO Q4H PRN PRN Reason: Pain (Moderate) Stop: 09/14/16 13:52 Last Admin: 07/16/16 22:09 Dose: 1 tab Amlodipine Besylate (Norvasc) 5 mg PO DAILY [facility] Stop: 09/09/16 08:59 Last Admin: 07/18/16 08:49 Dose: 5 mg Ascorbic Acid (Vitamin C) 500 mg PO DAILY [facility] Stop: 09/09/16 08:59 Last Admin: 07/18/16 08:47 Dose: 500 mg Benztropine Mesylate (Cogentin) 0.5 mg PO BID [facility] Stop: 09/08/16 16:59 Last Admin: 07/18/16 08:48 Dose: 0.5 mg Docusate Sodium (Colace) 100 mg PO BID [facility] Stop: 09/08/16 16:59 Last Admin: 07/18/16 08:47 Dose: 100 mg Furosemide (Lasix) 20 mg PO DAILY [facility] Stop: 09/09/16 08:59 Last Admin: 07/18/16 08:48 Dose: 20 mg Hydralazine HCl (Apresoline) 25 mg PO BID [facility] Stop: 09/08/16 16:59 Last Admin: 07/18/16 08:49 Dose: 25 mg Dextrose (D5w) 1,000 mls @ 75 mls/hr IV .[id number] [facility] Stop: 09/15/16 10:14 Last Admin: 07/17/16 15:04 Dose: 75 mls/hr Levetiracetam (Keppra) 500 mg PO BID [facility] Stop: 09/08/16 16:59 Last Admin: 07/18/16 08:47 Dose: 500 mg Lisinopril (Zestril) 20 mg PO DAILY [facility] Stop: 09/09/16 08:59 Last Admin: 07/18/16 08:49 Dose: 20 mg Magnesium Hydroxide (Milk Of Magnesia) 30 ml PO DAILY [facility] Stop: 09/09/16 08:59 Last Admin: 07/18/16 08:48 Dose: 30 ml Memantine (Namenda) 5 mg PO DAILY [facility] Stop: 09/09/16 08:59 Last Admin: 07/18/16 08:47 Dose: 5 mg Miscellaneous (Levalbuterol Hcl [Xopenex Concentrate]) 1.25 mg IH Q4HR PRN PRN Reason: Shortness of Breath or Wheeze Stop: 09/09/16 16:17 Morphine Sulfate (Morphine) 1 mg IVP Q2HR PRN PRN Reason: Pain (Severe) Stop: 09/14/16 13:54 Quetiapine Fumarate (Seroquel) 100 mg PO BID [facility] PRN Reason: Protocol Stop: 09/08/16 16:59 Last Admin: 07/18/16 08:47 Dose: 100 mg Quetiapine Fumarate (Seroquel) 25 mg PO BID [facility] Stop: 09/08/16 16:59 Last Admin: 07/18/16 08:47 Dose: 25 mg Venlafaxine HCl (Effexor Xr) 75 mg PO DAILY [facility] PRN Reason: Protocol Stop: 09/09/16 08:59 Last Admin: 07/18/16 08:49 Dose: 75 mg General: demented HEENT: NC/AT, PERRLA Neck: Supple Lungs: congested, rales Cardiovascular: RRR, Normal S1, Normal S2 Abdomen: soft non-tender, globular Extremities: excoriation - Procedures Procedures: Procedures Procedure Code Date EGD BIOPSY SINGLE/MULTIPLE 36772 07/10/08 EGD DIAGNOSTIC BRUSH WASH 67317 07/28/15 EMERGENCY DEPT VISIT 10479 05/30/11 ESOPHAGOGASTRODUODENOSCOPY [EGD] W/CLOSED BIOPSY 45.16 07/10/08 GROUP PSYCHOTHERAPY 42124 05/29/15 GROUP PSYCHOTHERAPY [id number] 05/29/15 INDIVID PSYCHOTHERAP NEC 94.39 06/14/08 INSPECTION OF UPPER INTESTINAL TRACT, ENDO [id number] 07/28/15 OTHER GROUP THERAPY 94.44 03/11/14 RECREATIONAL THERAPY 93.81 04/25/12 REPOSITION LEFT HUMERAL HEAD WITH INT FIX, OPEN APPROACH [id number] 07/09/16 TREAT HUMERUS FRACTURE 30290 07/09/16 Internal Medicine Assmt/Plan - Assessment Assessment: l shoulder fx htn asthma dementia chf leukocytosis anemia ri - Plan Plan: cont on pain control o2 bronchodilator pain control dw rn Nutritional Asmnt/Malnutr-PDOC - Dietary Evaluation Malnutrition Findings (Please click <Entered> for more info): Nutritional Asmnt/Malnutrition Start: 07/13/16 10: 14 Text: Status: Complete Freq: Document 07/13/16 10:14 DEBORAH (Rec: 07/13/16 10:31 [id number] KASIA- [id number]) Nutritional Asmnt/Malnutrition Patient General Information Nutritional Screening Moderate Risk Screening Diagnosis undisplaced fracture of the L humeral head (reason for visit ) Pertinent Medical Hx/Surgical Hx Alzheimer's disease, DJD, asthma, chronic kidney disease , congestive heart failure, history of iron deficiency enemia, cardiac arrhythmia Subjective Information Patient was admitted from [facility]. 1:1 sitter at bedside. Was NPO for possible surgical procedure, now on puree diet. Patient is is endentulous on pureed diet at home. Per previous RD note in [employer], patient states he had lost weight prior to admission, unsure of how much. Current Diet Order/ Nutrition Support Pureed Patient / S.O Not Indicated Pertinent Medications vitamin C, colace, lasix, MOM Pertinent Labs Albumin 2.9, BUN 38 Nutritional Hx/Data Height 1.8 m Height (Calculated Centimeters) 180.3 Current Weight (lbs) 80.286 kg Weight (Calculated Kilograms) 80.3 Weight (Calculated Grams) 77274.8 [place] Body Weight 172 % [place] Body Weight 102 Recent Weight Change No Weight Status Approriate GI Symptoms Difficult in: Chewing Food Allergies No Cultural/Ethnic/Restoration Belief none indicated Usual diet at home [facility] center: pure, [facility] Skin Integrity/Comment: Intact, Ole 15 Current %PO Good (75-100%) Estimated Nutritional Goals BEE in Kcals: Using Current wt Calories/Kcals/Kg 25-30 kcal/kg Kcals Calculated 1315-3898 kcal/day Protein: Using Current wt Protein g/k gm/kg Protein Calculated 80 gm/day Fluid: ml 1865-1352 ml/day Nutritional Problem No current Nutrition Prob Problem No nutrition diagnosis at this time Malnutrition Alert Is there a minimum of two criteria No selected? Query Text:Check all the applicable criteria. A minimum of two criteria are recommended for diagnosis of either severe or non-severe malnutrition. Intervention/Recommendation Comments 1. Continue pureed diet as tolerated by patient. Adequate to meet nutrient needs. Expected Outcomes/Goals Expected Outcomes/Goals Patient tolerates pureed diet, eats >75% of meals, weight remains stable, labs remain normal Physician Parameters for PEM Serum Albumin (g/dl) 2.4 - 3.0 (Moderate)
--- NOTE | 2016-07-19 02:09 | Progress Notes ---
Case was discussed with staff of the patient, reviewed records. The patient is supposed to be medically cleared, however he is unpredictable, impulsive, ____ we do not have any space for him in [facility]. We will see if he could be managed at the SNF facility. He is compliant with the medication with no side effects, no sedation or nausea. He just had surgery to his left forearm that was broken and surgery was done 2 days ago, not sure if they want him to go to rehab first ____ and so far he is compliant with the medication with no side effects, no sedation, no nausea ____ 125 mg twice day, Effexor 75 mg daily with no side effects. Thank you very much for allowing me to participate in the care of this most interesting gentleman. JOB# [id number]
[2016-07-19] MEDS: Magnesium Hydroxide (MOM) 30 mL UDC PO SCH (09:15)
[2016-07-19] MEDS: Multivitamin w/ Minerals Tab PO SCH (09:16)
--- NOTE | 2016-07-19 13:44 | Internal Medicine Prog Note ---
Internal Medicine Subjective - Subjective Service Date: 07/19/16 ([id number] dc summary) Internal Medicine Objective - Results Result Diagrams: 07/17/16 06:30 07/18/16 05:50 Recent Labs: Laboratory Last Values WBC 14.4 Th/cmm (4.8-10.8) H D 07/17/16 06:30 RBC 3.67 Mil/cmm (3.80-5.80) L 07/17/16 06:30 Hgb 10.3 gm/dL (12.6-17.4) L 07/17/16 06:30 Hct 30.5 % (39.0-49.0) L 07/17/16 06:30 MCV 83.1 fl (80-99) 07/17/16 06:30 MCH 28.0 pg (27.0-31.0) 07/17/16 06:30 MCHC Differential 33.7 pg (28.0-36.0) 07/17/16 06:30 RDW 18.2 % (11.5-20.0) 07/17/16 06:30 Plt Count 254 Th/cmm (150-400) 07/17/16 06:30 MPV 8.8 fl 07/17/16 06:30 Neutrophils % 78.3 % (40.0-80.0) 07/16/16 05:32 Band Neutrophils % 4 % (0-10) 07/17/16 06:30 Lymphocytes % 14.5 % (20.0-50.0) L 07/16/16 05:32 Monocytes % 5.3 % (2.0-10.0) 07/16/16 05:32 Eosinophils % 1.1 % (0.0-5.0) 07/16/16 05:32 Basophils % 0.8 % (0.0-2.0) 07/16/16 05:32 Neutrophils (Manual) 84 % (40-80) H 07/17/16 06:30 Lymphocytes 8 % (20-50) L 07/17/16 06:30 Monocytes 2 % (2-10) 07/17/16 06:30 Atypical Lymphocytes 2 % 07/17/16 06:30 Platelet Estimate ADEQUATE (NORMAL) 07/17/16 06:30 Platelet Morphology NORMAL (NORMAL) 07/17/16 06:30 RBC Morph Micro Appear NORMAL (NORMAL) 07/17/16 06:30 PT 11.3 SECONDS (9.5-11.5) 07/12/16 09:45 INR 1.09 (0.5-1.4) 07/12/16 09:45 PTT (Actin FS) 24.5 SECONDS (26.0-38.0) L 07/12/16 09:45 Sodium 139 mEq/L (136-145) 07/18/16 05:50 Potassium 3.7 mEq/L (3.5-5.1) 07/18/16 05:50 Chloride 110 mEq/L (98-107) H 07/18/16 05:50 Carbon Dioxide 25.9 mEq/L (21.0-31.0) 07/18/16 05:50 Anion Gap 6.8 (7.0-16.0) L 07/18/16 05:50 BUN 36 mg/dL (7-25) H 07/18/16 05:50 Creatinine 1.3 mg/dL (0.7-1.3) 07/18/16 05:50 Est GFR ( Amer) TNP 07/18/16 05:50 Est GFR (Non-Af Amer) TNP 07/18/16 05:50 BUN/Creatinine Ratio 27.7 07/18/16 05:50 Glucose 110 mg/dL (70-105) H 07/18/16 05:50 POC Glucose 94 MG/DL (70 - 105) 07/16/16 09:02 Calcium 8.8 mg/dL (8.6-10.3) 07/18/16 05:50 Total Bilirubin 1.0 mg/dL (0.3-1.0) 07/17/16 06:30 AST 28 U/L (13-39) 07/17/16 06:30 ALT 16 U/L (7-52) 07/17/16 06:30 Alkaline Phosphatase 107 U/L (34-104) H 07/17/16 06:30 Troponin I 0.02 ng/mL (0.01-0.05) 07/10/16 10:20 Total Protein 6.6 gm/dL (6.0-8.3) 07/17/16 06:30 Albumin 3.2 gm/dL (4.2-5.5) L 07/17/16 06:30 Globulin 3.4 gm/dL 07/17/16 06:30 Albumin/Globulin Ratio 0.9 (1.0-1.8) L 07/17/16 06:30 Urine Source MIDSTREAM 07/15/16 23:20 Urine Color YELLOW 07/15/16 23:20 Urine Clarity CLEAR (CLEAR) 07/15/16 23:20 Urine pH 6.0 07/15/16 23:20 Ur Specific [place] 1.015 (1.005-1.030) 07/15/16 23:20 Urine Protein NEGATIVE mg/dL (NEGATIVE) 07/15/16 23:20 Urine Glucose (UA) NEGATIVE mg/dL (NEGATIVE) 07/15/16 23:20 Urine Ketones NEGATIVE mg/dL (NEGATIVE) 07/15/16 23:20 Urine Blood NEGATIVE (NEGATIVE) 07/15/16 23:20 Urine Nitrate NEGATIVE (NEGATIVE) 07/15/16 23:20 Urine Bilirubin NEGATIVE (NEGATIVE) 07/15/16 23:20 Urine Urobilinogen 0.2 E.U./dL (0.2 - 1.0) 07/15/16 23:20 Ur Leukocyte Esterase NEGATIVE (NEGATIVE) 07/15/16 23:20 Urine RBC 0-2 /hpf (0-5) H 07/15/16 23:20 Urine WBC 0-2 /hpf (0-5) 07/15/16 23:20 Ur Epithelial Cells OCCASIONAL /lpf (FEW) 07/15/16 23:20 Urine Bacteria OCCASIONAL /hpf (NONE SEEN) 07/15/16 23:20 Blood Type A POSITIVE 07/16/16 05:32 Antibody Screen NEGATIVE 07/16/16 05:32 - Physical Exam Vitals and I&O: Vital Signs Temp 99 F 07/19/16 00:00 Pulse 68 07/19/16 09:18 Resp 16 07/19/16 08:00 BP 155/88 07/19/16 09:18 Pulse Ox 97 07/19/16 00:00 Intake & Output 07/18/16 07/19/16 07/19/16 18:59 06:59 18:59 Intake Total 240 Balance 240 Weight (lbs) 158 lb 9.6 oz Intake: Oral 240 Other: Stool Characteristics Soft Soft Soft Formed Formed Formed Brown Brown Brown Active Medications: Current Medications Acetaminophen (Tylenol) 325 mg PO Q4HR PRN PRN Reason: Pain Stop: 09/08/16 09:35 Last Admin: 07/14/16 13:39 Dose: 325 mg Acetaminophen/Hydrocodone Bitart ([place] 5mg/325mg) 1 tab PO Q4H PRN PRN Reason: Pain (Moderate) Stop: 09/14/16 13:52 Last Admin: 07/16/16 22:09 Dose: 1 tab Amlodipine Besylate (Norvasc) 5 mg PO DAILY JORGE Stop: 09/09/16 08:59 Last Admin: 07/19/16 09:18 Dose: 5 mg Ascorbic Acid (Vitamin C) 500 mg PO DAILY JORGE Stop: 09/09/16 08:59 Last Admin: 07/19/16 09:15 Dose: 500 mg Benztropine Mesylate (Cogentin) 0.5 mg PO BID JORGE Stop: 09/08/16 16:59 Last Admin: 07/19/16 09:16 Dose: 0.5 mg Docusate Sodium (Colace) 100 mg PO BID JORGE Stop: 09/08/16 16:59 Last Admin: 07/19/16 09:15 Dose: 100 mg Furosemide (Lasix) 20 mg PO DAILY JORGE Stop: 09/09/16 08:59 Last Admin: 07/19/16 09:18 Dose: 20 mg Hydralazine HCl (Apresoline) 25 mg PO BID JORGE Stop: 09/08/16 16:59 Last Admin: 07/19/16 09:17 Dose: 25 mg Dextrose (D5w) 1,000 mls @ 75 mls/hr IV .[id number] [facility] Stop: 09/15/16 10:14 Last Admin: 07/17/16 15:04 Dose: 75 mls/hr Levetiracetam (Keppra) 500 mg PO BID JORGE Stop: 09/08/16 16:59 Last Admin: 07/19/16 09:15 Dose: 500 mg Lisinopril (Zestril) 20 mg PO DAILY JORGE Stop: 09/09/16 08:59 Last Admin: 07/19/16 09:17 Dose: 20 mg Magnesium Hydroxide (Milk Of Magnesia) 30 ml PO DAILY JORGE Stop: 09/09/16 08:59 Last Admin: 07/19/16 09:15 Dose: 30 ml Memantine (Namenda) 5 mg PO DAILY JORGE Stop: 09/09/16 08:59 Last Admin: 07/19/16 09:16 Dose: 5 mg Miscellaneous (Levalbuterol Hcl [Xopenex Concentrate]) 1.25 mg IH Q4HR PRN PRN Reason: Shortness of Breath or Wheeze Stop: 09/09/16 16:17 Morphine Sulfate (Morphine) 1 mg IVP Q2HR PRN PRN Reason: Pain (Severe) Stop: 09/14/16 13:54 Quetiapine Fumarate (Seroquel) 100 mg PO BID [facility] PRN Reason: Protocol Stop: 09/08/16 16:59 Last Admin: 07/19/16 09:16 Dose: 100 mg Quetiapine Fumarate (Seroquel) 25 mg PO BID [facility] Stop: 09/08/16 16:59 Last Admin: 07/19/16 09:18 Dose: 25 mg Venlafaxine HCl (Effexor Xr) 75 mg PO DAILY [facility] PRN Reason: Protocol Stop: 09/09/16 08:59 Last Admin: 07/19/16 09:15 Dose: 75 mg - Procedures Procedures: Procedures Procedure Code Date EGD BIOPSY SINGLE/MULTIPLE 47003 07/10/08 EGD DIAGNOSTIC BRUSH WASH 84026 07/28/15 EMERGENCY DEPT VISIT 06733 05/30/11 ESOPHAGOGASTRODUODENOSCOPY [EGD] W/CLOSED BIOPSY 45.16 07/10/08 GROUP PSYCHOTHERAPY 86771 05/29/15 GROUP PSYCHOTHERAPY [id number] 05/29/15 INDIVID PSYCHOTHERAP NEC 94.39 06/14/08 INSPECTION OF UPPER INTESTINAL TRACT, ENDO [id number] 07/28/15 OTHER GROUP THERAPY 94.44 03/11/14 RECREATIONAL THERAPY 93.81 04/25/12 REPOSITION LEFT HUMERAL HEAD WITH INT FIX, OPEN APPROACH [id number] 07/09/16 TREAT HUMERUS FRACTURE 23126 07/09/16 Nutritional Asmnt/Malnutr-PDOC - Dietary Evaluation Malnutrition Findings (Please click <Entered> for more info): Nutritional Asmnt/Malnutrition Start: 07/13/16 10: 14 Text: Status: Complete Freq: Document 07/13/16 10:14 [id number] (Rec: 07/13/16 10:31 [id number] PEDROZA- PATRICIA) Nutritional Asmnt/Malnutrition Patient General Information Nutritional Screening Moderate Risk Screening Diagnosis undisplaced fracture of the L humeral head (reason for visit ) Pertinent Medical Hx/Surgical Hx Alzheimer's disease, DJD, asthma, chronic kidney disease , congestive heart failure, history of iron deficiency enemia, cardiac arrhythmia Subjective Information [facility]:1 sitter at bedside. Was NPO for possible surgical procedure, now on puree diet. Patient is is endentulous on pureed diet at home. Per previous RD note in [facility], patient states he had lost weight prior to admission, unsure of how much. Current Diet Order/ Nutrition Support Pureed Patient / S.O Not Indicated Pertinent Medications vitamin C, colace, lasix, MOM Pertinent Labs Albumin 2.9, BUN 38 Nutritional Hx/Data Height 5 ft 11 in Height (Calculated Centimeters) 180.3 Current Weight (lbs) 177 lb Weight (Calculated Kilograms) 80.3 Weight (Calculated Grams) 38022.8 [place] Body Weight 172 % [place] Body Weight 102 Recent Weight Change No Weight Status Approriate GI Symptoms Difficult in: Chewing Food Allergies No Cultural/Ethnic/Sabianist Belief none indicated Usual diet at home [facility] center: pureed, TARA, CCHO Skin Integrity/Comment: Intact, Ole 15 Current %PO Good (75-100%) Estimated Nutritional Goals BEE in Kcals: Using Current wt Calories/Kcals/Kg 25-30 kcal/kg Kcals Calculated 6591-9085 kcal/day Protein: Using Current wt Protein g/k gm/kg Protein Calculated 80 gm/day Fluid: ml 1631-2446 ml/day Nutritional Problem No current Nutrition Prob Problem No nutrition diagnosis at this time Malnutrition Alert Is there a minimum of two criteria No selected? Query Text:Check all the applicable criteria. A minimum of two criteria are recommended for diagnosis of either severe or non-severe malnutrition. Intervention/Recommendation Comments 1. Continue pureed diet as tolerated by patient. Adequate to meet nutrient needs. Expected Outcomes/Goals Expected Outcomes/Goals Patient tolerates pureed diet, eats >75% of meals, weight remains stable, labs remain normal Physician Parameters for PEM Serum Albumin (g/dl) 2.4 - 3.0 (Moderate)
--- NOTE | 2016-07-19 19:35 | Progress Notes ---
Case was discussed with staff of the patient, reviewed records. The patient is rambling, continues to be unable to make safe plan for self-care. He is sleeping well and eating well. He is compliant with the medication with no side effects. I am not sure about how he is going to behave when he is really out of effect of the anesthesia and the pain medication as he tends to get delusional, paranoid, and grandiose and he may need to go back to [facility]. Thank you very much for allowing me to participate in the care of this most interesting gentleman. JOB# [id number]
--- NOTE | 2016-07-19 21:37 | Discharge Summary ---
FINAL DIAGNOSES: Left shoulder fracture, hypertension, asthma, dementia, congestive heart failure, leukocytosis, anemia, degenerative joint disease, cardiac arrhythmia. HISTORY OF PRESENT ILLNESS: This is a 81-year-old male who is a resident of [facility], who was brought here to [facility] for increasing of agitation yesterday in the hospital stay. It was noted that the patient had bruises on his left upper extremity. The patient had an x-ray done and it revealed left humerus, head, and neck with probable extension to the articular surface, questionable fracture of the left elbow. PHYSICAL EXAMINATION: GENERAL: The patient is well developed, well nourished, in no acute distress. VITAL SIGNS: Stable. HEENT: Normocephalic, atraumatic. NECK: Supple. No mass. LUNGS: Clear bilaterally. HEART: Regular rate and rhythm. ABDOMEN: Soft, nontender. HOSPITAL COURSE: On 07/16/2016, the patient had an open reduction and internal plate and screw fixation of fractured neck, left humerus. The patient tolerated the procedure well. Due to the need of physical therapy, the patient is stable to be discharged to [facility]. CONDITION UPON DISCHARGE: Fair. DISPOSITION: [facility]. JOB# [id number]
== END 2016-07-19 18:31 | DRG 492 ==
LOC: MSI 21:50
PROVIDERS: ADMIT Internal Medicine; ATTEND Internal Medicine
PROC: 0PSD04Z Reposition Left Humeral Head with Internal Fixation Device, Open Approach (ICD-10-PCS; principal; 2016-07-16)
PROC: 3E0T3CZ (ICD-10-PCS; 2016-07-16)
DX: S42.292A Other displaced fracture of upper end of left humerus, initial encounter for closed fracture (principal); E43 Unspecified severe protein-calorie malnutrition; J44.9 Chronic obstructive pulmonary disease, unspecified; I50.9 Heart failure, unspecified; G30.9 Alzheimer's disease, unspecified; I48.2 Chronic atrial fibrillation; I11.0 Hypertensive heart disease with heart failure; F02.80 Dementia in other diseases classified elsewhere, unspecified severity, without behavioral disturbance, psychotic disturbance, mood disturbance, and anxiety; G40.909 Epilepsy, unspecified, not intractable, without status epilepticus; E11.9 Type 2 diabetes mellitus without complications; D64.9 Anemia, unspecified; F25.9 Schizoaffective disorder, unspecified; J45.909 Unspecified asthma, uncomplicated; M19.90 Unspecified osteoarthritis, unspecified site; S40.021A Contusion of right upper arm, initial encounter; F29 Unspecified psychosis not due to a substance or known physiological condition; K21.9 Gastro-esophageal reflux disease without esophagitis; W19.XXXA Unspecified fall, initial encounter; Y92.89 Other specified places as the place of occurrence of the external cause; Y99.8 Other external cause status
CPT/HCPCS: 36415-UA; 71010-TC; 76000-TC; 80048-TC; 80053-TC; 81001-TC; 82948-90; 84484-TC; 85007-TC; 85025-TC; 85027-TC; 85610-TC; 85730-TC; 86850-TC; 86900-TC; 86901-TC; 93005; 97530; J0690; J2001; J2250; J2704; J7030; J7042; J7070; X3904; X6024; X6206; X6530; Z7610

== ENCOUNTER 2016-08-22 17:20 | Emergency (ER) | payer MEDICARE, MEDICAID ==
--- NOTE | 2016-08-22 18:21 | ED Physician Chart ---
Chief Complaint/HPI - Patient Information Date Seen:: 08/22/16 Time Seen:: 18:00 Chief Complaint:: right wrist pain History of Present Illness:: Patient fell at 2100 last night injuring his right wrist. X-ray showed fracture of the distal right radius. Allergies:: Allergies Allergy/AdvReac Type Severity Reaction Status Date / Time No Known Allergies Allergy Verified 07/04/16 12:20 Historian:: Patient, EMS Review:: Nurse's Note Reviewed Review of Systems - Review of Systems General/Constitutional: No fever, No chills Skin: No skin lesions Head: No headache Eyes: No loss of vision ENT: No earache Neck: No neck pain Cardio Vascular: No chest pain Pulmonary: No SOB GI: No nausea, No vomiting G/U: No dysuria Musculoskeletal: Bone or joint pain Endocrine: No polyuria Psychiatric: Prior psych history Past Medical History - Past Medical History Past Medical History: HTN, CHF, Asthma/COPD, Arthritis, Other (degenerative joint disease; cardiac arrhythmia) Family History: Other (unavailable) Social History: Care Facility Surgical History: other (left shoulder) Medication: Reviewed Family Medical History - Family Member Mother History Unknown: Yes Ethnicity: Unknown Living Status: Hx Family Cancer: No Hx Family Coronary Artery Disease: No Hx Family Congestive Heart Failure: No Hx Family Hypertension: No Hx Family Stroke: No Hx Family Diabetes: No Hx Family Seizures: No Hx Family Dementia: No Hx Family AIDS: No Hx Family HIV: No Hx Family COPD: No Hx Family Hepatitis: No Hx Family Psychiatric Problems: No Hx Family Tuberculosis: No Physical Exam - Physical Examination General/Constitutional: Well-developed, well-nourished, Alert Head: Atraumatic Eyes: Lids, conjuctiva normal Skin: Nl inspection Other ENMT comments:: Edentulous Neck: No nuchal rigidity Respiratory: Nl effort/Exclusion, Clear to Auscultation, No Wheeze/Rhonchi/Rales Cardio Vascular: RRR GI: No tenderness/rebounding/guarding, No organomegaly, No hernia, Normal BS's : No CVA tenderness Other Extremities comments:: Swelling right wrist Labs/Radiology/EKG Results - Radiology Results Results: Right wrist: fracture radius Assessment - Assessment General Assessment: [place] splint applied Splint Care: Splint applied ED Septic Shock - . Is Septic Shock (SBP<90, OR Lactate>4 mmol\L) present?: No Reassessment (Disposition) - Reassessment Reassessment Condition:: Improved - Diagnosis Diagnosis:: Fracture radius right wrist - Aftercare/Follow up Instructions Aftercare/Follow-Up Instructions:: Refer to Discharge Instructions - Patient Disposition Discharge/Transfer:: Event Marketing Coordinator Care - SNF Spoke to:: Clarence Sinclair Condition at Disposition:: Stable, Improved
[2016-08-22 22:23] VITALS: BP 173/106
--- NOTE | 2016-08-23 09:22 | Diagnostic Imaging Report ---
Right wrist (3 views) HISTORY: Pain, trauma The exam demonstrates an impacted displaced fracture of the distal radius. Subcortical cystic changes noted in the distal portion of the navicular bone. Mild degenerative changes seen about the ulnar styloid. IMPRESSION: 1. Impacted displaced fracture of the distal radius
== END 2016-08-22 23:30 ==
LOC: ER 17:20
DX: S52.91XA Unspecified fracture of right forearm, initial encounter for closed fracture (principal); I10 Essential (primary) hypertension; J45.909 Unspecified asthma, uncomplicated; J44.9 Chronic obstructive pulmonary disease, unspecified; I50.9 Heart failure, unspecified; X58.XXXA Exposure to other specified factors, initial encounter; Y93.89 Activity, other specified; Y92.89 Other specified places as the place of occurrence of the external cause; Y99.8 Other external cause status
CPT/HCPCS: 73110-TC-RT; Z7502